=== PATIENT | male | born 2000 | race Caucasian/White ===

== ENCOUNTER 2022-08-25 13:16 | Emergency (ER) | payer MEDICAID ==
[~2022-08-25] VITALS: Ht 180.3 cm; Wt 78.0 kg
[2022-08-25 13:30] VITALS: BP 139/92
[2022-08-25] MEDS ORDERED: OFLO5DRO4 RIGHT EAR (16:43)
== END 2022-08-25 16:52 | disposition home or self-care (01) ==
LOC: ER 13:16
DX: T16.1XXA Foreign body in right ear, initial encounter (principal); X58.XXXA Exposure to other specified factors, initial encounter; Y93.9 Activity, unspecified; Y92.89 Other specified places as the place of occurrence of the external cause; Y99.8 Other external cause status
CPT/HCPCS: 69200; 99284; Z7610

== ENCOUNTER 2023-05-28 09:34 | Emergency (ER) | payer SELFPAY ==
[~2023-05-28] VITALS: Ht 177.8 cm; Wt 100.0 kg
[~2023-05-28 09:34] MED LIST: OFLO5DRO4 RIGHT EAR
[2023-05-28 09:50] VITALS: BP 144/91; PULSE 70; RESP 18; TEMP 98.6; O2SAT 97
[2023-05-28] MEDS ORDERED: TETANUS, DIPHTHERIA, PERTUSSIS VAC/PF 0.5ML (>10YR OLD) IM ONE (10:15)
== END 2023-05-28 10:28 | disposition home or self-care (01) ==
LOC: ER 09:34
DX: S76.99 Other specified injury of unspecified muscles, fascia and tendons at thigh level (principal); X58.XXXD Exposure to other specified factors, subsequent encounter
CPT/HCPCS: 90471; 90715; 99283